=== PATIENT | female | born 1970 | race Caucasian/White ===

== ENCOUNTER → 2019-10-01 | Outpatient (CLI) | payer BC | END | disposition home or self-care (01) | LOC: LAB SHORT 12:48 → PLD 12:48 | DX: N95.0 Postmenopausal bleeding (principal); N85.00 Endometrial hyperplasia, unspecified | CPT/HCPCS: 88305 ==

== ENCOUNTER 2020-05-19 09:48 | Day surgery (SDC) | payer BC ==
[~2020-05-19] VITALS: Ht 165.1 cm; Wt 109.3 kg
[~2020-05-19 09:48] MED LIST: EUTHYROX125 MCG PO; PROG100 PO; VIVELLE-DOT TOP
--- NOTE | 2020-05-19 11:12 | NUR ---
Ambulatory in Day Surgery History, Chart, Medications and Allergies reviewed before start of procedure.Patient confirms NPO status and agrees with scheduled surgery. Surgical site prepped with 2% Chlorhexidine cloth wipe. Patient reports completing Chlorhexadine shower X2 prior to admission to hospital.
[2020-05-20 04:57] LABS: BASOPHILS ABSOLUTE AUTO 0.02 K/mm3 (0.00-0.23); BASOPHILS PERCENT AUTO 0 % (0-2); EOSINOPHILS PERCENT AUTO 0 % (0-6); Hematocrit 37.6 % (33.0-51.0); Hemoglobin 12.4 g/dL (11.5-16.0); IMMATURE GRAN ABSOLUTE AUTO 0.04 K/mm3 (0.00-0.10); IMMATURE GRAN PERCENT AUTO 0 % (0-1); LYMPHOCYTES PERCENT AUTO 9 % (21-46); MONOCYTES ABSOLUTE AUTO 0.71 K/mm3 (0.16-1.47); MONOCYTES PERCENT AUTO 6 % (4-13); Mean Corpuscular Volume 91 fL (80-100); Mean Platelet Volume 12.3 fL (9.1-12.4); NEUTROPHILS ABSOLUTE AUTO 11.08 K/mm3 (1.96-9.15); NEUTROPHILS PERCENT AUTO 86 % (41-73); Platelet Count 238 K/mm3 (150-400); RDW Coefficient Variation 12.9 % (11.7-14.2); RDW Standard Deviation 42.7 fL (35.1-46.3); Red Blood Cell Count 4.14 M/mm3 (3.80-5.20); White Blood Cell Count 12.95 K/mm3 (4.00-11.30)
--- NOTE | 2020-05-20 05:35 | NUR ---
PATIENT WAS AWAKE MOST OF THE SHIFT. HER PAIN WAS UNDERCONTROL WITH PO PAIN MEDICATION. HER ABDOMEN IS MILDLY DISTENDED, 4 LAP SITES ARE CLEAN AND DRY. PERIPAD WITH SCANT BLOOD DISCHARGE. WOLF CATH REMOVED, PATIENT FELT THAT SHE NEEDED TO URINATE IMMEDIATELY, HELPED TO THE BR WHERE SHE VOIDED 350CC MORE. NO ACUTE CHANGES.
--- NOTE | 2020-05-20 09:46 | NUR ---
PT HAD A BRIEF EPISODE OF NAUSEA THIS AM THAT RESOLVED WITHOUT INTERVENTION. PT WAS OFFERED NAUSEA MEDICATIONS BUT REFUSED. STS THAT PAIN IS MANAGEABLE AT THIS TIME
[2020-05-20] MEDS ORDERED: DOCU100 PO (12:53)
[2020-05-20] MEDS ORDERED: Percocet 5-3251 EACH PO (12:54)
[2020-05-20] MEDS ORDERED: SENN187 PO (12:54)
[2020-05-20] MEDS ORDERED: PROM25 PO (12:54)
[2020-05-20] MEDS ORDERED: SIME80CH PO (12:55)
[2020-05-20] MEDS ORDERED: IBUP800 PO (12:56)
--- NOTE | 2020-05-20 13:30 | NUR ---
IV WAS REMOVED INTACT, PRESSURE DRESSED. PT EXPRESSED UNDERSTANDING OF DC TEACHING AND DENIES FURTHER NEEDS. PT PROVIDED WITH DC PAPERS AND HAND WRITTEN RX
== END 2020-05-20 13:45 | disposition home or self-care (01) ==
LOC: ORSCMMR 09:48 → ORD 11:00 → ORSCMMR 11:00 → SURS 17:50 → ORD 19:15 → SURS 05-20 13:45 → ORSCMMR 05-20 13:45
PROVIDERS: Obstetrics & Gynecology
PROC: 0UT94ZZ Resection of Uterus, Percutaneous Endoscopic Approach (ICD-10-PCS; principal; 2020-05-19 11:00)
PROC: 0UT24ZZ Resection of Bilateral Ovaries, Percutaneous Endoscopic Approach (ICD-10-PCS; principal; 2020-05-19 11:00)
PROC: 0UT74ZZ Resection of Bilateral Fallopian Tubes, Percutaneous Endoscopic Approach (ICD-10-PCS; principal; 2020-05-19 11:00)
PROC: 8E0W4CZ Robotic Assisted Procedure of Trunk Region, Percutaneous Endoscopic Approach (ICD-10-PCS; principal; 2020-05-19 11:00)
DX: N95.0 Postmenopausal bleeding (principal); D25.0 Submucous leiomyoma of uterus; N83.292 Other ovarian cyst, left side; E03.9 Hypothyroidism, unspecified; E66.01 Morbid (severe) obesity due to excess calories; Z68.39 Body mass index [BMI] 39.0-39.9, adult; Z79.899 Other long term (current) drug therapy
CPT/HCPCS: 58571; S2900; 36415; 82947; 85025; 86850; 86900; 86901; 88307; J0690; J1100; J1885; J2250; J2405; J2704; J2710; J3010; J7120

== ENCOUNTER 2020-09-26 09:23 | Day surgery (SDC) | payer BC ==
[~2020-09-26 09:23] MED LIST changes: +DOCU100 PO; +IBUP800 PO; +PROM25 PO; +Percocet 5-3251 EACH PO; +SENN187 PO; +SIME80CH PO
--- NOTE | 2020-09-26 09:57 | NUR ---
RECEIVED PT ORDERS TO PREP FOR CT ANGIOGRAM. PT TOLERATED 18G TO RAC PLACEMENT. DENIES CONCERNS, HR TRENDING 62-70. WILL MONITOR
--- NOTE | 2020-09-26 10:50 | NUR ---
TOOK PATIENT TO RADIOLOGY AND 1015. PT HR STAYED BELOW 62 UNTIL SHE GOT ONTO THE CT TABLE. PRACTICED RELAXATION BREATHS. PT ABLE TO GET HR DOWN TO 67 BPM AFTER RECEIVING ONE NITRO AT 1025. VS REMAINED STABLE THROUGHOUT PROCEDUR. PT DENIES CP OR PRESSURE AND SOB THROUGHT HOSPITAL STAY. IV REMOVED WITH CATH INTACT AND SITE CLEAR OF REDNESS OR PAIN.
== END 2020-09-26 22:51 | disposition home or self-care (01) ==
LOC: ORD 09:23 → CT 09:23 → ORD 09:30 → CT 10:00 → ORD 22:51
DX: I20.9 Angina pectoris, unspecified (principal); K44.9 Diaphragmatic hernia without obstruction or gangrene; E03.9 Hypothyroidism, unspecified; E78.5 Hyperlipidemia, unspecified; G47.00 Insomnia, unspecified; K21.9 Gastro-esophageal reflux disease without esophagitis; E66.9 Obesity, unspecified; Z68.41 Body mass index [BMI] 40.0-44.9, adult; Z79.899 Other long term (current) drug therapy
CPT/HCPCS: 75574; Q9967